=== PATIENT | female | born 1935 | race Caucasian/White ===

== ENCOUNTER → 2019-11-18 | Outpatient (CLI) | payer MEDICARE, OTHER ==
[~2019-11-18] MED LIST: ACET65TA OR; ALBU17IN INH; ASPI81TA26 PO; BREO1INH3 INH; COUM1TAB17 OR; COUM1TAB18 OR; CRAN400T3 PO; HYDR25TA6 OR; IMOD2TAB16 PO; LEVO50TA5 PO; LISI10TA4 OR; LISI10TA4 PO; LORTTAB8 PO; MAPA500T17 PO; MILK10SU PO; NICO7PA TD; PRED10PA2 PO; SPIR1CAP INH; SPIRIVA INH; VICO5TAB OR; VITMTA PO; XANA0.5T PO; ZITH500T PO; methimazole
--- NOTE | 2019-11-18 08:53 | REP ---
CT chest without contrast: History: Neoplasm of uncertain behavior. 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 Comparison chest CT study September 06, 2016. CT findings: There is an interval finding of osteoporotic wedge compression fracture deformity at the T11 and T12 levels. There is approximately 75% loss of anterior vertebral body height at T11 and 20% loss of anterior vertebral body height at T12. There are several healing rib fractures on the right and there is diffuse osteopenia. No bony destructive lesion is appreciated. There is fairly extensive bronchiectasis in the right lower lobe. The anterobasal segment of the right lower lobe region shows volume loss and consolidation with bronchiectatic air bronchograms. There is a small quantity of right pleural effusion. No left effusion is seen. There are mild emphysematous changes. There are granulomatous calcifications in the spleen. There appears to be a cyst in the upper pole left kidney incompletely included in the field of view. No adrenal lesion is seen. No hilar or mediastinal mass or adenopathy is seen. Impression: There is fairly extensive bronchiectasis in the right lower lobe with consolidation and collapse in the anterobasal region of the right lower lobe and a small right pleural effusion. There is a 7 mm noncalcified nodular density in the right lower lobe . Interval osteoporotic wedge compression fracture deformities are noted at T11 and T12. Mild emphysematous changes. Electronically Signed by Raza Simms MD 11/18/2019 09:04 A
== END ==
LOC: M RAD 06:51
PROVIDERS: ATTEND Physician Assistant Medical
DX: R91.1 Solitary pulmonary nodule (principal); J90 Pleural effusion, not elsewhere classified; J47.9 Bronchiectasis, uncomplicated

== ENCOUNTER → 2019-11-18 | Outpatient (CLI) | payer MEDICARE, OTHER ==
--- NOTE | 2019-11-18 13:16 | REP ---
INDICATION: History of cancer PROCEDURE: MR lumbar spine. COMPARISON STUDIES: None. FINDINGS: There is multilevel degenerative disc disease with loss of disc height and disc desiccation seen diffusely throughout the lumbar spine. There is focal loss of vertebral body height at T11, with wedge compression fracture, greater than 50% loss of height. There is isdo-tb-agaljyfh loss of vertebral body height at T12. L1-L3 heights are preserved. L4 with hscf-dx-nimhsiab loss of vertebral height. L5 with significant chronic compression deformity with greater than 75% loss of vertebral body height. The conus ends normally at L1 level. There is a significant canal stenosis at L2-3 through more inferior levels with impingement of the nerve roots of the cauda quinine. This is seen at L2-3 through sacral levels. There is hypointensity at T1 and T2 hypointensity at the sacral levels, S1 and S2. On the axial images this is seen within the sacrum bilaterally adjacent the SI joint medially. At L1-2: Global disc bulge centered to the left with sghw-ld-xymtcdqs canal stenosis and fmoo-si-khyxzntk bilateral foraminal narrowing is greater on the left. At L2-3: Global disc bulge with a least moderate canal stenosis and ukqx-hl-hqijmbbr bilateral foraminal narrowing that is greater on the right. At L3-4: Global disc bulge with at least moderate canal stenosis and moderate bilateral foraminal narrowing that is greater on the left. At L4-5: Global disc bulge with dzwdouoq-vz-pipbfb canal stenosis and moderate bilateral foraminal narrowing. At L5-S1: Loss of disc height with jvdu-vs-dzblyrix canal stenosis and moderate bilateral foraminal narrowing appears slightly greater on the right. Left renal lesion better seen on the recent CT scan. IMPRESSION: 1. Multilevel degenerative disc disease as described. Significant chronic compression deformities at T11 and L5. 2. Diffuse canal stenosis L2-3 through sacral levels. 3. T1 and T2 hypointensity in S1 and S2 within the sacrum bilaterally, medially adjacent to SI joint is highly suggestive of metastatic disease. No fracture. Electronically Signed by Ross Saucedo MD 11/18/2019 01:51 P
== END ==
LOC: M RAD 07:00
PROVIDERS: ATTEND Physician Assistant
DX: M51.37 Other intervertebral disc degeneration, lumbosacral region (principal); R91.1 Solitary pulmonary nodule; J90 Pleural effusion, not elsewhere classified; J47.9 Bronchiectasis, uncomplicated

== ENCOUNTER → 2019-12-25 | Outpatient (CLI) | payer MEDICARE, OTHER ==
[~2019-12-25] MED LIST changes: +NEUR400C PO; +PRED5PAK2 PO; +TOPR25TA PO; +VENTAER INH
--- NOTE | 2019-12-26 09:03 | REP ---
PET/CT: History: Restaging malignant neoplasm of the cervix. Comparisons: Comparison MRI lumbar spine November 18, 2019. Comparison chest CT November 18, 2019. MRI lumbar spine was read as showing abnormal signal intensity in the sacrum suggestive of metastatic disease. TECHNIQUE: 46 minutes following the intravenous injection of a 8.05 mCi dose of F-18 FDG, three-dimensional PET scintigraphy is acquired from the skull base to the proximal thighs. Triplanar noncontrast CT scanning is acquired through the same anatomic range for attenuation correction, and image registration with scan parameters optimized to minimize radiation exposure to the patient. PET scintigraphy and CT datasets were fused and displayed on a workstation with multiplanar and projection display capability. PET/CT Findings: There is atypically extensive diffuse skeletal muscle uptake throughout the visualized scan field. This is of uncertain etiology but may well negatively affect sensitivity for visceral disease detection. I am informed by the staff that the patient was quite anxious during the period time between the injection of scan and had to be related to the rest fall. If she did not follow the fasting instructions, this could also explain the pattern of uptake in the muscles. Diffuse myositis/rhabdomyolysis could account for the skeletal uptake pattern, possibly fever with shaking chills during the period between the injection and the scan acquisition. There is no discernible tracer uptake in the 7 mm nodule in the right lower lobe. There is mildly hypermetabolic uptake in the parenchymal consolidation associated with bronchiectasis in the right lower lobe, maximum standard uptake value 3.02. This is chronic by CT. No other abnormal hypermetabolic uptake is seen within the thoracic cavity. There is no evidence of hypermetabolic adenopathy in the head and neck soft tissues. No abnormal hypermetabolic uptake is seen within the abdominal cavity. CT images accompanying the PET scintigraphy demonstrate healing sacral insufficiency fractures bilaterally. This may be a delayed complication related to osteoporosis and post radiation therapy. There is no suspicious hypermetabolic uptake to suggest skeletal metastatic disease. Maximum standard uptake value within the sacrum is 2.04 on the left and 2.08 on the right. Also noted on CT are healing fractures of the inferior pubic rami bilaterally and the right superior pubic ramus. There is abnormal sclerosis in the left symphysis pubis implying healing fracture here as well. No evident hypermetabolic uptake is seen in any of these sites. There is no evidence of lytic metastasis. There is osteoporotic wedge compression deformity in the lower thoracic spine and at L5 and L4. No abnormal skeletal uptake. Impression: Scan quality and sensitivity negatively affected by atypically and diffusely prominent skeletal muscle uptake of uncertain etiology. CT images demonstrate healing sacral insufficiency fractures bilaterally which explains the abnormal signal intensity on recent MRI. There are also healing fractures in the inferior pubic rami bilaterally and the superior pubic ramus on the right. Probable healing fracture in the left symphysis. Electronically Signed by Raza Simms MD 12/26/2019 10:11 A
== END ==
LOC: M PLARAD 10:34
PROVIDERS: ATTEND Internal Medicine Hematology
DX: C53.8 Malignant neoplasm of overlapping sites of cervix uteri (principal)
CPT/HCPCS: 78815; A9552